=== PATIENT | male | born 1970 | race Caucasian/White ===

== ENCOUNTER 2021-09-19 11:34 | Emergency (ER) | payer OTHER, SELFPAY ==
[2021-09-19 12:17] VITALS: BP 160/81; PULSE 111; RESP 22; TEMP 37.6; O2SAT 96; BMI 38.3
[2021-09-19 12:30] VITALS: BP 148/82; PULSE 107; O2SAT 96
[2021-09-19 12:31] VITALS: BP 148/82; PULSE 111; RESP 22; TEMP 37.6; O2SAT 97
[2021-09-19 13:00] VITALS: BP 146/81; PULSE 106; O2SAT 95
[2021-09-19 13:14] LABS: Appearance Urine Clear (Clear); Bilirubin Urine Negative (Negative); Blood Urine Negative (Negative); Color Urine Yellow (Yellow); Glucose Urine 1+ (Negative); Ketones Urine Negative (Negative); Leukocyte Esterase Urine Negative (Negative); Nitrite Urine Negative (Negative); Protein Urine Negative (Negative); Urobilinogen Urine 0.2 (0.2-1.0); pH Urine 5.5 (5.0-8.5)
[2021-09-19 13:30] VITALS: BP 146/84; PULSE 102; O2SAT 96
[2021-09-19 13:36] LABS: Slide Review Reflex No
[2021-09-19] MEDS: 0.9 % SODIUM CHLORIDE 1000 ml 1,000 ML IV (13:36)
[2021-09-19 13:37] LABS: Lactate* 1.2 mmol/L (0.5-1.9)
[2021-09-19 13:39] LABS: Amorphous Sediment Urine Few; Bacteria Urine Few; RBC Urine 0-2 (0-2); Squamous Epithelial Cell Urine Few (None-Few); WBC Urine 0-2 (0-5)
[2021-09-19] MEDS: KETOROLAC 15 MG/ML inj IVP (13:39)
[2021-09-19 13:40] LABS: Mucus Urine Few; Other Sediment Urine Few
[2021-09-19 14:00] VITALS: BP 140/83; PULSE 100; RESP 22; TEMP 37.8; O2SAT 100
[2021-09-19 14:07] LABS: Chloride* 104 mmol/L (96-114); Potassium* 4.7 mmol/L (3.6-5.1); Sodium* 137 mmol/L (135-149)
[2021-09-19 14:09] LABS: Creatinine* 0.9 mg/dL (0.5-1.5); Est. Creatinine Clearance* 114.17; Estimated Glomerular Filt Rate 104.05
[2021-09-19 14:10] LABS: Alanine Aminotransferase* 36 U/L (4-50); Alkaline Phosphatase* 54 U/L (40-150); Aspartate Amino Transferase* 40 U/L (12-35); Bilirubin Direct* 0.6 mg/dL (0.0-0.5); Bilirubin Total* 0.9 mg/dL (0.1-1.5); Blood Urea Nitrogen* 17 mg/dL (7-30); Carbon Dioxide* 27 mmol/L (20-32); Glucose* 155 mg/dL (60-115); Total Protein* 6.9 g/dL (6.0-8.3)
[2021-09-19 14:11] LABS: Calcium* 8.7 mg/dL (8.4-10.6)
[2021-09-19 14:13] LABS: C Reactive Protein* 2.2 mg/dL (0.5-1.0)
[2021-09-19 14:16] LABS: Basophils Absolute Auto 0.05 K/uL (0.00-0.30); Basophils Percent Auto 0.7 % (0.0-3.0); Eosinophils Absolute Auto 0.03 K/uL (0.00-0.50); Eosinophils Percent Auto 0.4 % (0.0-7.0); Hematocrit 43.7 % (37.0-53.0); Hemoglobin* 14.9 gm/dL (13.5-17.5); Immature Granulocytes Abs Auto 0.03 K/uL (0.00-0.30); Lymphocytes Percent Auto 6.8 % (20-44); Mean Corpuscular HGB Conc 34 gm/dL (32-36); Mean Corpuscular Hemoglobin 30 pg (26-34); Mean Corpuscular Volume 87 fL (80-100); Monocytes Percent Auto 23.6 % (0.0-11.0); Neutrophils Absolute Auto 4.98 K/uL (1.7-7.0); Neutrophils Percent Auto 68.1 % (42.0-72.0); Platelet Count* 191 K/uL (140-440); Red Blood Count 5.01 m/uL (4.30-5.90); White Blood Count* 7.32 K/uL (4.50-11.00)
--- NOTE | 2021-09-19 15:02 | XR_ITS ---
Final Report Patient: [facility] Facility:?[facility] Patient ID:?[id number] Site Patient [id number]:?[id number]. Site :?[id number] Study:?XRay Chest PORTABLE-09/19/2021 3:34:35 PM Ordering Physician:Mary Pereyra Final Report: Indication: Fever. Technique: AP portable view of the chest. Comparison: October 16, 2015. Findings: The heart is normal in size. The lungs are clear. No infiltrate, pleural effusion, or pneumothorax is identified. Impression: No acute cardiopulmonary process Dictated by Pat Alvarado MD @ 09/19/2021 3:57:04 PM (Electronic Signature)
--- NOTE | 2021-09-19 15:08 | ED.NURSE ---
Covid/Flu/RSV swab completed and sent to lab.
--- NOTE | 2021-09-19 16:33 | ED.FEVER ---
HPI - Fever General Date Seen: 09/19/21 Chief Complaint: Fever Stated Complaint: fever Time Seen by Provider: 09/19/21 12:19 Source: patient History of Present Illness HPI Narrative: Patient is a 51-year-old male who presents with fever which started yesterday. He reports a temperature of 104.9? yesterday associated with some generalized back pain and some leg pain. He specifically denies any headache, sore throat, cough, abdominal pain, nausea, vomiting, diarrhea, urinary symptoms. He has not been around anybody who has been sick. No unusual rashes, he has not been outside a lot, no known tick bites. Today he has felt a little chilled but his temperatures not been as high, only in the high 99s. Related Data Previous Rx's Medication Instructions Recorded nirmatrelvir 300 mg (150 mg x See Rx Instructions .ROUTE 09/19/21 2)-ritonavir 100 mg tablet (EUA) .COMPLEX PRN #6 tab (Paxlovid 300 mg () Allergies Allergy/AdvReac Type Severity Reaction Status Date / Time aspirin Allergy Verified 09/19/21 12:26 Penicillins Allergy Verified 09/19/21 12:26 Review of Systems Status of ROS Reports: 10 or more systems reviewed and unremarkable except as noted in History and below [facility] Medical History DM (diabetes mellitus), type 2 Social History Smoking Status: Current every day smoker What tobacco products do you use: cigarettes Smoking packs per day: 1 Smoking cigarettes per day: 20.0 Years smoked: 35 Smoking pack-years: 35.00 Do you use any of these nicotine containing products: None Second hand tobacco smoke exposure: Yes How often do you have a drink containing alcohol: monthly or less How many standard drinks containing alcohol do you have on a typical day: 1 or 2 How often do you have six or more drinks on one occasion: Less than monthly AUDIT-C Alcohol total score: 2 Non-prescribed substance use: over the counter (eg: immodium) service: No Exam Narrative Exam Narrative: Vital signs as noted above. In general, an alert, nontoxic male. Head: Normocephalic, atraumatic. Eyes: Pupils are equal reactive. Extraocular movements are full. Conjunctivae are normal. ENT: Mucous membranes are moist. Throat is normal. Neck: Supple without lymphadenopathy. Heart: Regular rate and rhythm. No murmur or rub. Lungs: Clear bilaterally. No increased work of breathing, crackles or wheezes. Abdomen: Soft and nontender. No organomegaly. Extremities: Well perfused. No edema. No calf tenderness. Pulses intact. Neurologic: Patient is alert and oriented to person and place. Speech is fluent. Face is symmetric. Moves all extremities equally. Affect: Normal. Skin: Warm and dry. Well perfused. Const Vital Signs, click to edit/add: Vital Signs - 24 hr 09/19/21 12:17 09/19/21 12:30 09/19/21 12:31 Temperature 99.7 F H 99.7 F H Pulse Rate [Apical] 111 H 107 H Pulse Rate [Pulse Oximeter] 111 H Respiratory Rate 22 22 Blood Pressure [Left Upper Arm] 148/82 H Blood Pressure [Right Arm] 148/82 H Blood Pressure [Right Upper Arm] 160/81 H 148/82 H Pulse Oximetry 96 96 97 09/19/21 13:00 09/19/21 13:30 09/19/21 14:00 Temperature 100.1 F H Pulse Rate [Apical] 106 H 102 H 100 Pulse Rate [Pulse Oximeter] Respiratory Rate 22 Blood Pressure [Left Upper Arm] 146/81 H 146/84 H Blood Pressure [Right Arm] Blood Pressure [Right Upper Arm] 140/83 H Pulse Oximetry 95 96 100 Course Course Hospital Course: Placed an IV here and gave a L of normal saline as well as 15 mg of Toradol. Patient feels improved. Labs are overall reassuring. White blood cell count is normal. CRP is very minimally elevated at 2.2. Lactate negative. Metabolic panel is normal. Blood sugars 155. Creatinine is 0.9. UA is negative. I did do a chest x-ray given the absence of any other source for fever, this by my review is negative. Final radiology report is likewise negative. Initially, plan was to discharge with a diagnosis of fever of unknown origin as his COVID/influenza swab was pending, but this came back right at the end of his time in the ER with a positive COVID test. Thus would discharge with a diagnosis of COVID. Discussed Paxvlovid with patient. He is 51, overweight, diabetes, so meets criteria. He does take simvastatin which will need to be held. He also takes metformin. He is interested in taking Paxlovid, and understands that his cholesterol medication will need to be discontinued while he is taking the medication and for 1 week after. Return for worsening respiratory symptoms or other concerns. Vital Signs Vital signs: Initial Vital Signs Temperature 99.7 F H 09/19/21 12:17 Temperature Source Temporal Artery Scan 09/19/21 12:17 Pulse Rate 111 H 09/19/21 12:17 Pulse Rhythm 09/19/21 12:17 Pulse Strength 3+ Normal 09/19/21 12:17 Respiratory Rate 22 09/19/21 12:17 Blood Pressure 160/81 H 09/19/21 12:17 Blood Pressure Mean 107 09/19/21 12:17 Blood Pressure Position Supine 09/19/21 12:17 Pulse Oximetry 96 09/19/21 12:17 Oxygen Delivery Method 09/19/21 12:17 Vital Signs Temperature 99.7 F H 09/19/21 12:17 Pulse Rate 111 H 09/19/21 12:17 Respiratory Rate 22 09/19/21 12:17 Blood Pressure 160/81 H 09/19/21 12:17 Pulse Oximetry 96 09/19/21 12:17 Temperature 100.1 F H 09/19/21 14:00 Pulse Rate 100 09/19/21 14:00 Respiratory Rate 22 09/19/21 14:00 Blood Pressure 140/83 H 09/19/21 14:00 Pulse Oximetry 100 09/19/21 14:00 MDM - Fever Lab Data Labs: Lab Results 09/19/21 09/19/21 09/19/21 Range/Units 12:38 13:22 13:22 WBC 7.32 (4.50-11.00) K/uL RBC 5.01 (4.30-5.90) m/uL Hgb 14.9 (13.5-17.5) gm/dL Hct 43.7 (37.0-53.0) % MCV 87 (80-100) fL MCH 30 (26-34) pg MCHC 34 (32-36) gm/dL RDW Coeff of Cole 13.0 (11.5-15.5) % Plt Count 191 (140-440) K/uL Neut % (Auto) 68.1 (42.0-72.0) % Lymph % (Auto) 6.8 L (20-44) % [place] % (Auto) 23.6 H (0.0-11.0) % Eos % (Auto) 0.4 (0.0-7.0) % Baso % (Auto) 0.7 (0.0-3.0) % Neut # (Auto) 4.98 (1.7-7.0) K/uL Lymph # (Auto) 0.50 L (0.90-2.90) K/uL [place] # (Auto) 1.70 H (0.00-0.90) K/UL Eos # (Auto) 0.03 (0.00-0.50) K/uL Baso # (Auto) 0.05 (0.00-0.30) K/uL Abs Immat Gran (auto) 0.03 (0.00-0.30) K/uL Sodium 137 (135-149) mmol/L Potassium 4.7 (3.6-5.1) mmol/L Chloride 104 (96-114) mmol/L Carbon Dioxide 27 (20-32) mmol/L BUN 17 (7-30) mg/dL Creatinine 0.9 (0.5-1.5) mg/dL Estimated Creat Clear 114.17 Glucose 155 H (60-115) mg/dL Lactate (0.5-1.9) mmol/L Calcium 8.7 (8.4-10.6) mg/dL Total Bilirubin 0.9 (0.1-1.5) mg/dL Direct Bilirubin 0.6 H (0.0-0.5) mg/dL AST 40 H (12-35) U/L ALT 36 (4-50) U/L Alkaline Phosphatase 54 (40-150) U/L C-Reactive Protein 2.2 H (0.5-1.0) mg/dL Total Protein 6.9 (6.0-8.3) g/dL Albumin 4.0 (3.3-5.0) g/dL Urine Color Yellow (Yellow) Urine Appearance Clear (Clear) Urine pH 5.5 (5.0-8.5) Ur Specific [place] 1.010 (1.000-1.030) Urine Protein Negative (Negative) Urine Glucose (UA) 1+ A (Negative) Urine Ketones Negative (Negative) Urine Blood Negative (Negative) Urine Nitrite Negative (Negative) Urine Bilirubin Negative (Negative) Urine Urobilinogen 0.2 (0.2-1.0) Ur Leukocyte Esterase Negative (Negative) Urine RBC 0-2 (0-2) Urine WBC 0-2 (0-5) Ur Squamous Epith Cells Few (None-Few) Amorphous Sediment Few A (None) Other Sediment Few A (None) Urine Bacteria Few A (None) Urine Mucus Few A (None) SARS-CoV-2 (PCR) (Negative) Influenza Type A (PCR) (Negative) Influenza Type B (PCR) (Negative) RSV (PCR) (Negative) 09/19/21 09/19/21 Range/Units 13:22 15:07 WBC (4.50-11.00) K/uL RBC (4.30-5.90) m/uL Hgb (13.5-17.5) gm/dL Hct (37.0-53.0) % MCV (80-100) fL MCH (26-34) pg MCHC (32-36) gm/dL RDW Coeff of Cole (11.5-15.5) % Plt Count (140-440) K/uL Neut % (Auto) (42.0-72.0) % Lymph % (Auto) (20-44) % [place] % (Auto) (0.0-11.0) % Eos % (Auto) (0.0-7.0) % Baso % (Auto) (0.0-3.0) % Neut # (Auto) (1.7-7.0) K/uL Lymph # (Auto) (0.90-2.90) K/uL [place] # (Auto) (0.00-0.90) K/UL Eos # (Auto) (0.00-0.50) K/uL Baso # (Auto) (0.00-0.30) K/uL Abs Immat Gran (auto) (0.00-0.30) K/uL Sodium (135-149) mmol/L Potassium (3.6-5.1) mmol/L Chloride (96-114) mmol/L Carbon Dioxide (20-32) mmol/L BUN (7-30) mg/dL Creatinine (0.5-1.5) mg/dL Estimated Creat Clear Glucose (60-115) mg/dL Lactate 1.2 (0.5-1.9) mmol/L Calcium (8.4-10.6) mg/dL Total Bilirubin (0.1-1.5) mg/dL Direct Bilirubin (0.0-0.5) mg/dL AST (12-35) U/L ALT (4-50) U/L Alkaline Phosphatase (40-150) U/L C-Reactive Protein (0.5-1.0) mg/dL Total Protein (6.0-8.3) g/dL Albumin (3.3-5.0) g/dL Urine Color (Yellow) Urine Appearance (Clear) Urine pH (5.0-8.5) Ur Specific [place] (1.000-1.030) Urine Protein (Negative) Urine Glucose (UA) (Negative) Urine Ketones (Negative) Urine Blood (Negative) Urine Nitrite (Negative) Urine Bilirubin (Negative) Urine Urobilinogen (0.2-1.0) Ur Leukocyte Esterase (Negative) Urine RBC (0-2) Urine WBC (0-5) Ur Squamous Epith Cells (None-Few) Amorphous Sediment (None) Other Sediment (None) Urine Bacteria (None) Urine Mucus (None) SARS-CoV-2 (PCR) POSITIVE (Negative) Influenza Type A (PCR) NEGATIVE (Negative) Influenza Type B (PCR) NEGATIVE (Negative) RSV (PCR) NEGATIVE (Negative) Discharge Plan Discharge Clinical Impression: Fever of unknown origin Patient Disposition: Home, Self-Care Condition: Stable Instructions: Fever in Adults (ED), COVID-19 (Coronavirus Disease 2019) (ED) Additional Instructions: Ibuprofen or Tylenol if needed for fever. If you have worsening symptoms, shaking chills, weakness, vomiting, or other acute changes, return to the emergency department. Otherwise, follow-up with your primary doctor fever persists for more than a couple of days. Labs, x-ray and urine tests are all normal today. We will call you if your COVID or influenza tests are positive. Prescriptions: New Paxlovid (EUA) 150 mg x 2- 100 mg tablet See Rx Instructions .ROUTE .COMPLEX PRNQty: 6 0RF Rx Instructions: take TWO 150 mg tablets of nirmatrelvir with ONE 100 mg tablet of ritonavir twice daily for 5 days Follow Up/Referrals: Chintan Yoo MD [Primary Care Provider] - Stand Alone Forms: [employer] Info Instructions
--- NOTE | 2021-09-19 16:40 | ED.NURSE ---
Patient discharged from ED back to home with Covid 19 discharge teaching and instructions provided.
[2021-09-19 16:44] LABS: PCR FLU A NEGATIVE (Negative); PCR FLU B NEGATIVE (Negative); PCR RSV NEGATIVE (Negative); SARS PCR* POSITIVE (Negative)
--- NOTE | 2021-09-19 17:57 | PC.NURSE ---
dr dixon had called into [facility] for paxlovid for 2 days. [facility] had called in to inquire.
--- NOTE | 2021-09-19 18:07 | ED.NURSE ---
paxlovid bid for 5 days -standard dosing called per dr montes' order to [facility].
== END 2021-09-19 16:45 | disposition home or self-care (01) ==
PROVIDERS: Emergency Provider Emergency Medicine; PCP Family Medicine
DX: U07.1 COVID-19 (principal)
CPT/HCPCS: 36415; 71045; 80048; 80076; 81001; 83605; 85025; 86140; 87040; 87086; 87502; 87634; 87635; 96374; 99283; 99284; J1885; J7030

== ENCOUNTER 2021-11-28 11:33 | Outpatient (CLI) | payer OTHER, SELFPAY ==
[2021-11-28 16:47] LABS: Albumin* 4.3 g/dL (3.3-5.0); Chloride* 100 mmol/L (96-114)
[2021-11-28 16:48] LABS: Potassium* 4.7 mmol/L (3.6-5.1); Sodium* 140 mmol/L (135-149)
[2021-11-28 16:50] LABS: Alkaline Phosphatase* 102 U/L (40-150); Aspartate Amino Transferase* 35 U/L (12-35); Bilirubin Total* 0.8 mg/dL (0.1-1.5); Blood Urea Nitrogen* 14 mg/dL (7-30); Carbon Dioxide* 28 mmol/L (20-32); Creatinine* 0.8 mg/dL (0.5-1.5); Estimated Glomerular Filt Rate 108 ml/min; Glucose* 102 mg/dL (60-115); Total Protein* 7.4 g/dL (6.0-8.3)
[2021-11-28 16:51] LABS: Alanine Aminotransferase* 32 U/L (4-50); Calcium* 9.4 mg/dL (8.4-10.6)
== END 2021-11-28 11:34 | disposition home or self-care (01) ==
LOC: FRMREF 11:34
PROVIDERS: PCP Family Medicine; Visit Provider Dermatology
DX: L40.3 Pustulosis palmaris et plantaris (principal)
CPT/HCPCS: 80053

== ENCOUNTER 2021-12-18 11:28 | Outpatient (CLI) | payer OTHER, SELFPAY ==
[2021-12-18 08:20] LABS: Hemoglobin A1C* 6.1 % (0-5.6)
[2021-12-18 09:43] LABS: Chloride* 105 mmol/L (96-114)
[2021-12-18 09:44] LABS: Albumin* 4.4 g/dL (3.3-5.0); Sodium* 139 mmol/L (135-149)
[2021-12-18 09:45] LABS: Potassium* 4.9 mmol/L (3.6-5.1)
[2021-12-18 09:46] LABS: Cholesterol* 193 mg/dL (90-199)
[2021-12-18 09:47] LABS: Alanine Aminotransferase* 34 U/L (4-50); Alkaline Phosphatase* 102 U/L (40-150); Aspartate Amino Transferase* 36 U/L (12-35); Bilirubin Total* 1.3 mg/dL (0.1-1.5); Blood Urea Nitrogen* 16 mg/dL (7-30); Calcium* 9.4 mg/dL (8.4-10.6); Carbon Dioxide* 27 mmol/L (20-32); Creatinine* 0.9 mg/dL (0.5-1.5); Estimated Glomerular Filt Rate 104 ml/min; Glucose* 118 mg/dL (60-115); Total Protein* 7.4 g/dL (6.0-8.3); Triglycerides* 163 mg/dL (40-149)
[2021-12-18 09:48] LABS: HDL Cholesterol* 41 mg/dL (>=40); LDL Cholesterol Calculated 119 mg/dL (<100)
[2021-12-18 10:04] LABS: Creatinine Urine 328.1 mg/dL
[2021-12-18 10:08] LABS: Microalbumin Creatinine Ratio 0 mg/g (0-30); Microalbumin Urine 2 mg/dL
== END 2021-12-18 11:29 | disposition home or self-care (01) ==
PROVIDERS: PCP Family Medicine; Visit Provider Family Medicine
DX: E11.9 Type 2 diabetes mellitus without complications (principal); E78.5 Hyperlipidemia, unspecified; E66.9 Obesity, unspecified; B34.9 Viral infection, unspecified; L40.3 Pustulosis palmaris et plantaris; Z12.5 Encounter for screening for malignant neoplasm of prostate
CPT/HCPCS: 80053; 80061; 82043; 82570; 83036; 84153

== ENCOUNTER 2022-03-05 08:46 | Outpatient (CLI) | payer SELFPAY ==
[2022-03-05 10:52] LABS: Albumin* 4.2 g/dL (3.3-5.0)
[2022-03-05 10:53] LABS: Chloride* 107 mmol/L (96-114); Potassium* 4.8 mmol/L (3.6-5.1); Sodium* 140 mmol/L (135-149)
[2022-03-05 10:55] LABS: Aspartate Amino Transferase* 30 U/L (12-35); Bilirubin Total* 0.7 mg/dL (0.1-1.5); Carbon Dioxide* 26 mmol/L (20-32); Creatinine* 0.7 mg/dL (0.5-1.5); Estimated Glomerular Filt Rate 112 ml/min
[2022-03-05 10:56] LABS: Alanine Aminotransferase* 32 U/L (4-50); Alkaline Phosphatase* 85 U/L (40-150); Blood Urea Nitrogen* 16 mg/dL (7-30); Calcium* 9.2 mg/dL (8.4-10.6); Glucose* 101 mg/dL (60-115); Magnesium* 1.5 mg/dL (1.5-2.6); Total Protein* 6.9 g/dL (6.0-8.3)
== END 2022-03-05 08:47 | disposition home or self-care (01) ==
LOC: NFLDREF 09:15
PROVIDERS: PCP Family Medicine; Visit Provider Dermatology
DX: Z79.899 Other long term (current) drug therapy (principal)
CPT/HCPCS: 80053; 83735